=== PATIENT | female | born 1995 | race Two or more races ===

== ENCOUNTER → 2017-02-14 | Outpatient (REF) | payer OTHER | LOC: M SFHCLERA 17:43 | PROVIDERS: ATTEND Nurse Practitioner Family | DX: R39.9 Unspecified symptoms and signs involving the genitourinary system (principal) ==

== ENCOUNTER → 2017-06-14 | Outpatient (REF) | payer OTHER | LOC: M SFHCLERA 11:02 | PROVIDERS: ATTEND Physician Assistant Medical | DX: N39.0 Urinary tract infection, site not specified (principal) | CPT/HCPCS: 87086; G0463 ==

== ENCOUNTER 2018-03-31 17:16 | Emergency (ER) | payer OTHER, SELFPAY ==
[2018-03-31 18:12] LABS: BASO % 0.3 % (0.0-1.0); EOS # 0.2 10^3/uL (0.0-0.50); EOS % 2.1 % (0.0-3.0); HEMATOCRIT 33.4 % (36.0-47.0); HEMOGLOBIN 11.4 g/dl (12.0-15.5); IMMATURE GRANULOCYTE % 0.4 % (0-3.0); LYMPH # 1.6 10^3/uL (1.5-6.5); LYMPH % 16.1 % (24.0-44.0); MEAN CORPUSCULAR HEMOGLOBIN 28.2 pg (27.0-33.0); MEAN CORPUSCULAR HGB CONC 34.1 g/dl (32.0-36.5); MEAN CORPUSCULAR VOLUME 82.7 fl (80.0-96.0); MONO # 0.4 10^3/uL (0.0-0.8); MONO % 4.3 % (0.0-5.0); NEUTROPHILS # 7.8 10^3/uL (1.8-7.7); NEUTROPHILS % 76.8 % (36.0-66.0); PLATELET COUNT, AUTOMATED 298 10^3/uL (150-450); RED BLOOD COUNT 4.04 10^6/uL (4.00-5.40); WHITE BLOOD COUNT 10.2 10^3/uL (4.0-10.0)
[2018-03-31] MEDS: MORPHINE 4 MG/ML 1ML VIAL/SYRINGE (J2270) IV (18:12)
[2018-03-31] MEDS: ONDANSETRON 4MG/2ML VIAL (J2405) IV (18:12)
[2018-03-31] MEDS: NS 1,000 ML IV (18:12)
[2018-03-31 19:26] LABS: ALBUMIN 3.3 GM/DL (3.2-5.2); ALBUMIN/GLOBULIN RATIO 0.89 (1.00-1.93); ALKALINE PHOSPHATASE 65 U/L (45-117); ALT/SGPT 23 U/L (12-78); ANION GAP 12 MEQ/L (8-16); AST/SGOT 21 U/L (7-37); BILIRUBIN,DIRECT 0.1 MG/DL (0.0-0.2); BILIRUBIN,TOTAL 0.3 MG/DL (0.2-1.0); BLOOD UREA NITROGEN 10 MG/DL (7-18); CALCIUM LEVEL 8.7 MG/DL (8.5-10.1); CARBON DIOXIDE LEVEL 23 MEQ/L (21-32); CHLORIDE LEVEL 106 MEQ/L (98-107); CREATININE FOR GFR 0.46 MG/DL (0.55-1.30); GLOMERULAR FILTRATION RATE > 60.0 (>60); GLUCOSE, FASTING 79 MG/DL (70-100); HCG, SERUM QUANTITATIVE 13100 MIU/ML; LIPASE 119 U/L (73-393); POTASSIUM SERUM 3.9 MEQ/L (3.5-5.1); SODIUM LEVEL 141 MEQ/L (136-145)
== END 2018-03-31 20:08 | disposition home or self-care (01) ==
LOC: M ED 17:16
DX: O26.892 Other specified pregnancy related conditions, second trimester (principal); O26.612 Liver and biliary tract disorders in pregnancy, second trimester; Z3A.16 16 weeks gestation of pregnancy; Z87.891 Personal history of nicotine dependence; Z79.899 Other long term (current) drug therapy
CPT/HCPCS: J2270

== ENCOUNTER → 2018-06-10 | Outpatient (CLI) | payer OTHER | LOC: M RAD 17:00 | DX: O35.8XX0 Maternal care for other (suspected) fetal abnormality and damage, not applicable or unspecified (principal); Z3A.26 26 weeks gestation of pregnancy | CPT/HCPCS: 76811 ==

== ENCOUNTER 2018-09-04 10:54 | Inpatient (IN) | payer OTHER ==
[2018-09-04] VITALS (29 sets, daily range): BP systolic 107–160; BP diastolic 61–92
[~2018-09-04] VITALS: Ht 157.5 cm; Wt 79.1 kg
[~2018-09-04 10:54] MED LIST: PRENTAB45 PO
[2018-09-04] MEDS ORDERED: TUMS500C PO (11:21)
[2018-09-04] MEDS ORDERED: LR 1,000 ML IV SCH (12:04)
[2018-09-04] MEDS ORDERED: LACTATED RINGER'S 1000 ML IV STA (12:04)
--- NOTE | 2018-09-04 12:17 | HPEPDOC ---
Obstetrical History & Physical General Date of Admission Sep 04, 2018 at 12:03 History of Present Illness 22 y/o at 38+5 with SROM this AM 3 hrs ago and painful reg ctx's that ar worsening. Pos FM. No VB. Pos FM. Preg c/b only 5mm bilat renal pelviectasis. Childhood mild asthma very rare albuterol use. 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 History: No pertinent history Past Medical History Medical History childhood asthma Surgical History: [place] teeth Family History Significant Family History: No pertinent family hx Social History Marital Status: Family situation: Spouse/partner home Psychosocial History: No pertinent psych hx * Smoker: non-smoker Alcohol: Denies Drugs: denies Abuse Violence Screening Have you been hit/kicked/slapp: No Have you been sexually assault: No Imunizations Tdap status: current Influenza Status: current Allergies Coded Allergies: No Known Drug Allergy (Verified Allergy, Unknown, 03/31/18) Medications Scheduled Multivitamins/ ( One Daily 27-0.8 mg) 1 Tab Tab, 1 TAB PO DAILY Scheduled PRN Calcium Carbonate (Tums) 500 Mg Chw, 2 TAB PO QIDP PRN for INDIGESTION Physical Examination Physical Examination GENERAL: Alert and oriented times three. ABDOMEN: Gravid and non-tender to touch. FETUS: Is vertex (VTX) by sterile vaginal examination (SVE), 4-5/100/-2/vtx well applied EXTREMITIES: No edema. Vital Signs/I&O Vital Signs Date Time Temp Pulse Resp B/P (MAP) Pulse Ox O2 Delivery O2 Flow Rate FiO2 09/04/18 11:13 98.5 78 16 107/69 (82) Laboratory Data Urine Culture: Contaminated Pertinent Laboratoy Data Blood Type: A+ RBC Antibody Screen: Negative HIV: Negative Hepatitis B: Negative Hepatitis C: Unknown Rapid Plasma Reagin: Nonreactive Rubella: Immune Varicella: Immune Chlamydia/Gonorrhea: Negative Group B Streptococcus: Negative Cystic Fibrosis: Negative Anatomy Ultrasound Placenta Location: Posterior Normal Anatomy: No (nl other than pelviectasis bilat, very slight) Assessment Variability: Moderate Accelerations: Positive Decelerations: None Tocometer Contractions: Yes Frequency: regular Duration: greater than 60 seconds Strength: palpated as moderate Assessment/Plan Assessment SROM, active labor Plan Admit and orient. Director Strategic Planning and consent. Diet: clears Group B Streptococcus (GBS) neg Labs and intravenous (IV) per unit protocol. Counseled on Pitocin and induction of labor (IOL). Lactated Ringers (LR): Bolus 1000 mL prior to epidural, then at 125 mL/hr. Anticipate normal spontaneous delivery () C-S as appropriate. Peds consult for the pelviectasis after delivery SESSIONS,FLETCHER Schmid MD Sep 04, 2018 12:17
[2018-09-04 12:20] LABS: HEMATOCRIT 34.9 % (36.0-47.0); HEMOGLOBIN 11.3 g/dl (12.0-15.5); MEAN CORPUSCULAR HEMOGLOBIN 26.4 pg (27.0-33.0); MEAN CORPUSCULAR HGB CONC 32.4 g/dl (32.0-36.5); MEAN CORPUSCULAR VOLUME 81.5 fl (80.0-96.0); PLATELET COUNT, AUTOMATED 284 10^3/uL (150-450); RED BLOOD COUNT 4.28 10^6/uL (4.00-5.40)
[2018-09-04] MEDS ORDERED: FENTANYL 2MCG/ML ROPIVACAINE 0.2% IN 0.9% NACL 100ML IVBAG As Ordered ONE (12:56)
[2018-09-04] MEDS ORDERED: diphenhydrAMINE INJ 50MG/ML VIAL (J1200) IV PRN (14:00)
[2018-09-04] MEDS ORDERED: FENTANYL/ROPIVACAINE/NACL BAG 100 ML EPIDURAL SCH (14:00)
[2018-09-04] MEDS ORDERED: ONDANSETRON 4MG/2ML VIAL (J2405) IV PRN (14:00)
[2018-09-04] MEDS ORDERED: NALOXONE INJ 0.4 MG/1 ML VIAL (J2310) IV PRN (14:00)
[2018-09-04] MEDS ORDERED: ePHEDrine SULFATE 25 MG/5 ML(5MG/ML) SYRINGE IV PRN (14:00)
[2018-09-04] MEDS ORDERED: REFRIGERATOR IV KEYS XX PRN (14:00)
[2018-09-04] MEDS ORDERED: EPIDURAL COMMENT XX SCH (14:00)
[2018-09-04] MEDS ORDERED: LACTATED RINGER'S 1000 ML IV PRN (14:00)
[2018-09-04] MEDS ORDERED: EPIDURAL/PCA KEYS XX PRN (14:00)
--- NOTE | 2018-09-04 15:48 | IPNPDOC ---
Text Note Date of Service The patient was seen on 09/04/18. NOTE Now s/p epidural, good relief FHT Cat 1 throughout, reg ctx's Cx C/8/-1 Doing well. Recheck ~1800, sooner prn. Sessions VS,Anaya, I+O VSAnaya I+O Laboratory Tests 09/04/18 12:10 Red Blood Count 4.28, Mean Corpuscular Volume 81.5, Mean Corpuscular Hemoglobin 26.4 L, Mean Corpuscular Hemoglobin Concent 32.4, Red Cell Distribution Width 14.4 Vital Signs Date Time Temp Pulse Resp B/P (MAP) Pulse Ox O2 Delivery O2 Flow Rate FiO2 09/04/18 15:16 86 16 120/77 (91) 09/04/18 13:09 98.7 SESSIONS,FLETCHER Schmid MD Sep 04, 2018 15:48
--- NOTE | 2018-09-04 18:49 | IPNPDOC ---
Text Note Date of Service The patient was seen on 09/04/18. NOTE FHT Cat 1, reg ctx's Cx AL/100/+1, likely reducible Will start pushing after shift change, likely 20-30 min, will attempt to reduce the lip if still present. Sessions VS,Anaya, I+O VSAnaya, I+O Laboratory Tests 09/04/18 12:10 Red Blood Count 4.28, Mean Corpuscular Volume 81.5, Mean Corpuscular Hemoglobin 26.4 L, Mean Corpuscular Hemoglobin Concent 32.4, Red Cell Distribution Width 14.4 Vital Signs Date Time Temp Pulse Resp B/P (MAP) Pulse Ox O2 Delivery O2 Flow Rate FiO2 09/04/18 18:16 99.1 75 16 132/85 (101) SESSIONS,FLETCHER Schmid MD Sep 04, 2018 18:48
[2018-09-04] MEDS ORDERED: CALCIUM CARBONATE 500 MG CHEW U/D PO PRN (19:00)
[2018-09-04] MEDS ORDERED: OXYTOCIN 30 UNITS IN 0.9% NaCl 500ML IV BAG (J2590) As Ordered ONE (19:09)
[2018-09-04] MEDS ORDERED: OXYTOCIN DRIP 30 UNITS in APPROPRIATE DILUENT 1 EA IV SCH (21:47)
--- NOTE | 2018-09-04 21:52 | DNPDOC ---
[facility] Delivery Note Delivery Note DATE OF DELIVERY: [id number]@2119 PREDELIVERY DIAGNOSIS: 38 5/7 weeks' gestation and labor. POST DELIVERY DIAGNOSIS: Delivered. PROCEDURE: Spontaneous vaginal delivery AVIATION ENGINEER: Dr. Winter ANESTHESIA: epidural ESTIMATED BLOOD LOSS: 200 mL. FINDINGS: 7 pound 0 ounce male infant, Score 7/9 DELIVERY SUMMARY: Progressed quickly right at the end after having been stuck on the perineum for some time, FHT reassuring. route delivery driver, when I came into the room, vigorous baby just being placed on abd and cord being cut by FOB. Cord blood obtained. Placenta intact, fundus firm, pit going 999. No lacs to vag/per/cx. Uncomplicated, see RN for delivery particulars as I was not in the room with actual delivery. Rosita WINTER,FLETCHER Schmid MD Sep 04, 2018 21:52
[2018-09-04] MEDS ORDERED: DIBUCAINE 1% OINTMENT 30GM TOP PRN (22:00)
[2018-09-04] MEDS ORDERED: MEASLES,MUMPS,RUBELLA VACCINE INJ (MMR-II) (90707) SC SCH (22:00)
[2018-09-04] MEDS ORDERED: RHOGAM 300 MCG (1500 IU) INJ (J2790) IM SCH (22:00)
[2018-09-04] MEDS ORDERED: ACETAMINOPHEN TAB 650MG DOSE (2X325MG) PO PRN (22:00)
[2018-09-04] MEDS ORDERED: IBUPROFEN 800 MG TAB PO PRN (22:00)
[2018-09-05 00:03] VITALS: BP 108/70
[2018-09-05 06:48] VITALS: BP 90/55
--- NOTE | 2018-09-05 07:59 | IPNPDOC ---
Text Note Date of Service The patient was seen on 09/05/18. NOTE PPD1 States feeling well, pain controlled with prescribed meds. Baby bonding and feeding well. No heavy VB. Lochia slowing. Ambulatory. Tolerating PO without issues. Voiding spont. VSSAF NAD A&O RRR CTAB LE no C/C/E Ut at U-2, firm a/p: Doing well. Cont routine care. D/C tomorrow likely. Sessions Anaya SANTA, I+O Anaya TRINH I+O Laboratory Tests 09/04/18 12:10 Red Blood Count 4.28, Mean Corpuscular Volume 81.5, Mean Corpuscular Hemoglobin 26.4 L, Mean Corpuscular Hemoglobin Concent 32.4, Red Cell Distribution Width 14.4 Vital Signs Date Time Temp Pulse Resp B/P (MAP) Pulse Ox O2 Delivery O2 Flow Rate FiO2 09/05/18 06:48 98.9 74 16 90/55 (67) I&O- Last 24 Hours up to 6 AM 09/05/18 06:00 Intake Total 2818.9 ml Output Total 1000 ml Balance 1818.9 ml FLETCHER WINTER MD Sep 05, 2018 07:59
[2018-09-05] MEDS: PRENATAL VITAMINS CHEWABLE TABLET PO SCH (08:32)
[2018-09-05] MEDS: DOCUSATE SODIUM 100 MG CAP PO SCH ×2 (08:32→20:17)
--- NOTE | 2018-09-05 17:02 | IPN ---
DATE: 09/05/2018 This lady and her requested circumcision of their male . After discussing risks, benefits of circumcision, medical and nonmedical indications, penile block, and aftercare, expressed understanding of penile block, aftercare, and bleeding. Signed witnessed consent form. All questions were answered. A 20-minute discussion. We await the clearance by the patent chemist.
[2018-09-05 18:00] VITALS: BP 114/71
--- NOTE | 2018-09-06 05:40 | NUR ---
PostpartumProgress Note Date of Service The patient was seen on 09/06/18. NOTE PPD2 Erica reports feeling well, pain controlled with prescribed meds. Baby bonding and well. No heavy VB. Lochia slowing. Ambulatory. Tolerating PO without issues. Voiding spont. No questions. VSS/AF NAD A&O RRR CTAB LE no C/C/E Ut at U-2, firm Locia scant rubra a/p: Doing well. Cont routine care this am. Home medications given. Extensive review of warning signs and return precautions. Advised to schedule 6- 8 week examination. DC to home with NBN today pending peds dc orders on babe.
[2018-09-06 05:49] VITALS: BP 120/58
[2018-09-06] MEDS ORDERED: IBUP-1022 PO (07:25)
[2018-09-06] MEDS ORDERED: MAPA500T2 PO (07:25)
[2018-09-06] MEDS ORDERED: NUPE1OIN2 TOP (07:25)
[2018-09-06] MEDS: PRENATAL VITAMINS CHEWABLE TABLET PO SCH (07:44)
[2018-09-06] MEDS: DOCUSATE SODIUM 100 MG CAP PO SCH (07:44)
== END 2018-09-06 13:45 | disposition home or self-care (01) | DRG 807 ==
LOC: M LDO 10:54 → M LDI 12:03 → M OBS 23:14
PROVIDERS: ADMIT Obstetrics & Gynecology; ATTEND Obstetrics & Gynecology
PROC: 10E0XZZ Delivery of Products of Conception, External Approach (ICD-10-PCS; principal; 2018-09-04)
DX: O80 Encounter for full-term uncomplicated delivery (principal); Z37.0 Single live birth; Z3A.38 38 weeks gestation of pregnancy

== ENCOUNTER 2019-04-30 23:45 | Emergency (ER) | payer OTHER ==
[~2019-04-30] VITALS: Ht 160 cm; Wt 74.1 kg
[~2019-04-30 23:45] MED LIST changes: +IBUP-1022 PO; +MAPA500T2 PO; +NUPE1OIN2 TOP; +TUMS500C PO
[2019-05-01 00:06] VITALS: BP 140/99
[2019-05-01] MEDS ORDERED: AMOX500C PO (00:24)
[2019-05-01] MEDS ORDERED: AMOXICILLIN 500 MG CAP PO ONE (00:30)
== END 2019-05-01 00:35 | disposition home or self-care (01) ==
LOC: M ED 23:45
DX: B27.90 Infectious mononucleosis, unspecified without complication (principal); J02.8 Acute pharyngitis due to other specified organisms; J45.909 Unspecified asthma, uncomplicated; F17.290 Nicotine dependence, other tobacco product, uncomplicated